=== PATIENT | male | born 1970 | race Caucasian/White ===

== ENCOUNTER → 2020-11-03 | Outpatient (CLI) | payer OTHER ==
[~2020-11-03] MED LIST: DECADRON6 MG PO; PERCOCET 5/325 T1 EA PO; PRINIVIL10 MG PO
== END ==
LOC: EXRD 11:01
DX: M47.26 Other spondylosis with radiculopathy, lumbar region (principal); M54.12 Radiculopathy, cervical region
CPT/HCPCS: 72040; 72100

== ENCOUNTER → 2020-11-04 | Outpatient (CLI) | payer OTHER | LOC: EXRD 10:02 | DX: R91.8 Other nonspecific abnormal finding of lung field (principal) | CPT/HCPCS: 71046 ==

== ENCOUNTER → 2020-11-09 | Outpatient (CLI) | payer OTHER | LOC: EXRD 14:05 | DX: R10.9 Unspecified abdominal pain (principal); N20.0 Calculus of kidney | CPT/HCPCS: 74018 ==

== ENCOUNTER 2021-03-13 16:59 | Emergency (ER) | payer OTHER ==
[~2021-03-13 16:59] MED LIST changes: -DECADRON6 MG PO; -PERCOCET 5/325 T1 EA PO
[2021-03-13] MEDS ORDERED: DECADRON6 MG PO ×2 (17:22→18:28)
[2021-03-13] MEDS ORDERED: PERCOCET 5/325 T1 EA PO ×2 (17:22→18:28)
== END 2021-03-13 18:30 | disposition home or self-care (01) ==
LOC: ER1 16:59
DX: M54.9 Dorsalgia, unspecified (principal); I10 Essential (primary) hypertension
CPT/HCPCS: 96372; 99283; J2270; J2550

== ENCOUNTER 2021-04-01 17:27 | Emergency (ER) | payer OTHER ==
[~2021-04-01 17:27] MED LIST changes: +DECADRON6 MG PO; +PERCOCET 5/325 T1 EA PO
[2021-04-01] MEDS ORDERED: CYCLOBENZAPRINE10 MG PO (20:43)
== END 2021-04-01 20:50 | disposition home or self-care (01) ==
LOC: ER1 17:27
DX: M54.42 Lumbago with sciatica, left side (principal); Z87.442 Personal history of urinary calculi
CPT/HCPCS: 72131; 96372; 99283; J1100; J1885

== ENCOUNTER 2021-10-17 11:47 | Emergency (ER) | payer OTHER ==
[~2021-10-17 11:47] MED LIST changes: +CYCLOBENZAPRINE10 MG PO
[2021-10-17 13:34] LABS: HEMOGLOBIN 15.8 gm/dl (14.0-17.5); RED BLOOD COUNT 5.36 M/UL (4.20-5.50); WHITE BLOOD COUNT 17.8 K/UL (4.5-11.0)
[2021-10-17 14:09] LABS: BUN/CREATININE RATIO 15 (0-10)
[2021-10-17] MEDS ORDERED: DECADRON6 MG PO (20:44)
[2021-10-17] MEDS ORDERED: ZITHROMAX250 MG PO (20:44)
[2021-10-17] MEDS ORDERED: DOXYCYCLINE HY100 MG PO (23:27)
[2021-10-17] MEDS ORDERED: ZOFRAN ODT 4 MG4 MG GT (23:28)
[2021-10-17] MEDS ORDERED: ASPIRIN CHEWABL81 MG PO (23:29)
== END 2021-10-17 18:00 | disposition home or self-care (01) ==
LOC: ER1 11:47
PROVIDERS: Emergency Medicine
DX: U07.1 COVID-19 (principal); M54.50 Low back pain, unspecified; Z87.442 Personal history of urinary calculi
CPT/HCPCS: 71045; 80053; 82550; 82553; 83874; 84484; 85025; 93005; 99284; U0002

== ENCOUNTER 2021-10-17 18:27 | Emergency (ER) | payer OTHER ==
[2021-10-17 20:00] LABS: HEMOGLOBIN 15.4 gm/dl (14.0-17.5); RED BLOOD COUNT 5.2 M/UL (4.20-5.50); WHITE BLOOD COUNT 17.5 K/UL (4.5-11.0)
[2021-10-17 20:21] LABS: BUN/CREATININE RATIO 15 (0-10)
[2021-10-17] MEDS ORDERED: ZITHROMAX250 MG PO (20:44)
[2021-10-17] MEDS ORDERED: DECADRON6 MG PO (20:44)
[2021-10-17] MEDS ORDERED: DOXYCYCLINE HY100 MG PO (23:27)
[2021-10-17] MEDS ORDERED: ZOFRAN ODT 4 MG4 MG GT (23:28)
[2021-10-17] MEDS ORDERED: ASPIRIN CHEWABL81 MG PO (23:29)
== END 2021-10-17 23:44 | disposition home or self-care (01) ==
LOC: ER1 18:27
PROVIDERS: Family Medicine
DX: U07.1 COVID-19 (principal); J12.82 Pneumonia due to coronavirus disease 2019; I10 Essential (primary) hypertension; E66.9 Obesity, unspecified; Z87.442 Personal history of urinary calculi
CPT/HCPCS: 36600; 80053; 81001; 82550; 82553; 82803; 83615; 83874; 84484; 85025; 85379; 86140; 87040; 87077; 87086; 87186; 93005; 99285; J1170; Q9967

== ENCOUNTER → 2021-10-19 | Outpatient (CLI) | payer OTHER ==
[~2021-10-19] VITALS: Ht 177.8 cm; Wt 158.8 kg
[~2021-10-19] MED LIST changes: +ASPIRIN CHEWABL81 MG PO; +DOXYCYCLINE HY100 MG PO; +ZITHROMAX250 MG PO; +ZOFRAN ODT 4 MG4 MG GT
== END ==
LOC: EROP 11:54
DX: U07.1 COVID-19 (principal); Z23 Encounter for immunization; I10 Essential (primary) hypertension
CPT/HCPCS: M0247; Q0247

== ENCOUNTER → 2021-11-29 | Outpatient (CLI) | payer OTHER | LOC: EXRD 08:43 | DX: U07.1 COVID-19 (principal); R06.02 Shortness of breath; R91.8 Other nonspecific abnormal finding of lung field | CPT/HCPCS: 71046 ==

== ENCOUNTER → 2022-03-07 | Outpatient (CLI) | payer OTHER | LOC: ECHO 13:15 → HEART 5 15:30 | DX: R94.31 Abnormal electrocardiogram [ECG] [EKG] (principal) | CPT/HCPCS: ECHO; 93306; Q9957 ==